=== PATIENT | male | born 1940 | race Caucasian/White ===

== ENCOUNTER 2024-03-06 04:48 | Outpatient (RCR) | payer MEDICARE, SELFPAY ==
[2024-02-21] MEDS: IRON SUCROSE COMPLEX 300 MG in Normal Saline 250 ML 176.667 MG IVPB (13:16)
[2024-02-21] MEDS: Normal Saline Flush 10 ML SYR IVP (13:16)
[2024-02-28] MEDS: IRON SUCROSE COMPLEX 300 MG in Normal Saline 250 ML 176.667 MG IVPB (13:36)
[2024-02-28] MEDS: Normal Saline Flush 10 ML SYR IVP (13:36)
[2024-03-06] MEDS: Normal Saline Flush 10 ML SYR IVP (12:28)
[2024-03-06] MEDS: IRON SUCROSE COMPLEX 300 MG in Normal Saline 250 ML 176.667 MG IVPB (12:34)
== END 2024-03-15 23:59 | disposition home or self-care (01) ==
LOC: INF 04:48
PROVIDERS: PCP Physician Assistant Medical; Visit Provider Family Medicine
DX: N18.31 Chronic kidney disease, stage 3a (principal); D63.1 Anemia in chronic kidney disease
CPT/HCPCS: 96365; 96366; J1756